=== PATIENT | male | born 1980 | race Caucasian/White ===

== ENCOUNTER 2017-05-14 05:04 | Emergency (ER) | payer MEDICAID ==
[~2017-05-14] VITALS: Ht 175.3 cm; Wt 91.0 kg
[2017-05-14 07:26] LABS: BASOPHILS % 0.4 % (0.0-2.0); EOSINOPHILS % 2.3 % (0.0-5.0); HEMATOCRIT. 32.3 % (42.0-52.0); LYMPHOCYTES % 19.1 % (20.0-50.0); MEAN CORPUSCULAR HEMOGLOBIN 28.1 pg (28.0-32.0); MEAN PLATELET VOLUME 8.8 fl (7.4-10.4); NEUTROPHILS % 70.2 % (40.0-76.0); PLATELET 276 x1000/uL (130-400); RED CELL DISTRIBUTION WIDTH 12.8 % (11.6-14.6)
[2017-05-14 07:34] LABS: PROTHROMBIN TIME 9.9 sec (9.4-11.6)
[2017-05-14 07:53] LABS: CARBON DIOXIDE 30 mEq/L (21-32); CHLORIDE 106 mEq/L (98-107); TROPONIN I < 0.02 ng/mL (0.00-0.04)
[2017-05-14] MEDS ORDERED: FUROSEMIDE 40MG/4ML VIAL IVP ONE (09:30)
[2017-05-14] MEDS ORDERED: NITROGLYCERIN 0.4MG TABLET SL SL PRN ×2 (10:00→14:15)
[2017-05-14] MEDS ORDERED: ONDANSETRON HCL 4MG/2ML VIAL IV PRN ×2 (10:00→14:15)
[2017-05-14] MEDS ORDERED: ACETAMINOPHEN 325MG TABLET PO PRN ×2 (10:00→14:15)
[2017-05-14] MEDS ORDERED: ZOLPIDEM TARTRATE 5MG TABLET PO PRN ×2 (10:00→14:15)
[2017-05-14] MEDS ORDERED: DOCUSATE SODIUM 100MG CAPSULE PO PRN ×2 (10:00→14:15)
[2017-05-14] MEDS ORDERED: DEXTROSE 50% WATER 50ML SYRINGE IV PRN ×2 (10:00→14:15)
[2017-05-14] MEDS ORDERED: DIPHENHYDRAMINE 50MG/ML VIAL IV PRN ×2 (10:00→14:15)
[2017-05-14] MEDS ORDERED: IPRATROPIUM/ALBUTEROL 0.5-3(2.5)MG/3ML NEB INH PRN ×2 (10:00→14:15)
[2017-05-14] MEDS ORDERED: NA PHOS,M-B/NA PHOS,DI-BA ENEMA 118ML PR PRN ×2 (10:00→14:15)
[2017-05-14] MEDS ORDERED: ENOXAPARIN 40MG/0.4ML SYR SUBCUT SCH ×2 (10:00→14:15)
[2017-05-14] MEDS ORDERED: KETOROLAC 15MG/ML VIAL IV PRN ×2 (10:00→14:15)
[2017-05-14] MEDS ORDERED: GUAIFENESIN 200MG/10ML SUGAR FREE UDC PO PRN ×2 (10:00→14:15)
[2017-05-14 10:54] LABS: ETHANOL BLOOD < 10 mg/dL; HDL CHOLESTEROL 88 mg/dL (40-59); LDL CHOLESTEROL 94 mg/dL (5-100)
[2017-05-14] MEDS ORDERED: BLOOD SUGAR DIAGNOSTIC STRIP TEST SCH ×2 (13:00→14:15)
[2017-05-14] MEDS ORDERED: INSULIN LISPRO 100 UNITS/ML SUBCUT SCH ×2 (13:20→14:15)
[2017-05-14 13:36] VITALS: BP 173/109
[2017-05-14] MEDS ORDERED: SPIRONOLACTONE 25MG TABLET PO SCH ×2 (21:00→21:15)
[2017-05-14] MEDS ORDERED: FAMOTIDINE 20MG/2ML VIAL IV SCH ×2 (21:00→21:15)
[2017-05-14] MEDS ORDERED: FUROSEMIDE 40MG/4ML VIAL IVP SCH ×2 (21:00→21:15)
[2017-05-15] MEDS ORDERED: ASPIRIN 325MG EC TABLET PO SCH ×2 (09:00→09:15)
== END 2017-05-14 14:10 | disposition left against medical advice (07) ==
LOC: ER 05:30 → EDBEDREQ 09:41 → ER 14:10 → CANBEDREQ 18:22
DX: E87.70 Fluid overload, unspecified (principal); E11.65 Type 2 diabetes mellitus with hyperglycemia; N28.9 Disorder of kidney and ureter, unspecified; D64.9 Anemia, unspecified; R05 Cough; D72.829 Elevated white blood cell count, unspecified; Z79.82 Long term (current) use of aspirin
CPT/HCPCS: 36415; 71045; 80053; 80061; 83036; 83690; 83880; 84484; 85025; 85610; 93005; 93970; 96374; 99285; G0482; J1940; 80305

== ENCOUNTER 2019-02-11 12:56 | Emergency (ER) | payer MEDICAID ==
[~2019-02-11] VITALS: Ht 175.3 cm; Wt 70.0 kg
[2019-02-11 14:04] LABS: BASOPHILS % 0.2 % (0.0-2.0); EOSINOPHILS % 0.8 % (0.0-5.0); HEMATOCRIT. 38.2 % (42.0-52.0); HEMOGLOBIN. 13.1 g/dL (14.0-18.0); LYMPHOCYTES % 9.6 % (20.0-50.0); MEAN CORPUSCULAR HEMOGLOBIN 31.4 pg (28.0-32.0); MEAN CORPUSCULAR VOLUME 91.6 fL (80.0-94.0); MEAN PLATELET VOLUME 9.7 fl (7.4-10.4); MONOCYTES % 6.4 % (2.0-8.0); PLATELET 173 x1000/uL (130-400); RED BLOOD CELL COUNT 4.18 mill/uL (4.7-6.1); RED CELL DISTRIBUTION WIDTH 15.6 % (11.6-14.6)
[2019-02-11 14:09] LABS: CHLORIDE 87 mEq/L (98-107)
[2019-02-11 14:11] LABS: PARTIAL THROMBOPLASTIN TIME 24.6 sec (23.4-31.0); PROTHROMBIN TIME 10.6 sec (9.6-11.0)
[2019-02-11] MEDS ORDERED: HYDRALAZINE HCL 25MG TABLET PO ONE (15:00)
[2019-02-11] MEDS ORDERED: DOCUSATE SODIUM 100MG CAPSULE PO SCH (17:00)
[2019-02-11] MEDS ORDERED: ASPIRIN 81MG TABLET PO NR (17:00)
[2019-02-11] MEDS ORDERED: SORBITOL 70% SOLN 30ML PO PRN (17:00)
[2019-02-11] MEDS ORDERED: HYDRALAZINE 20MG/ML VIAL IV ONE (17:00)
[2019-02-11] MEDS ORDERED: METOCLOPRAMIDE HCL 5MG TABLET PO NR (17:45)
[2019-02-11] MEDS ORDERED: CALCIUM ACETATE 667MG CAPSULE PO SCH (17:45)
[2019-02-11] MEDS ORDERED: HYDRALAZINE HCL 100MG TABLET PO SCH (17:45)
[2019-02-11] MEDS ORDERED: NIFEDIPINE XL 60MG TAB PO SCH (17:45)
[2019-02-11] MEDS ORDERED: ONDANSETRON HCL 4MG/2ML INJ IV ONE ×2 (20:15→21:45)
[2019-02-12 01:30] VITALS: BP 184/113
[2019-02-12] MEDS ORDERED: CALCIUM ACETATE 667MG CAPSULE PO SCH (09:00)
[2019-02-12] MEDS ORDERED: HYDRALAZINE HCL 100MG TABLET PO SCH (09:00)
[2019-02-12] MEDS ORDERED: NIFEDIPINE XL 60MG TAB PO SCH (09:00)
[2019-02-12] MEDS ORDERED: METOCLOPRAMIDE HCL 5MG TABLET PO SCH (09:00)
[2019-02-12] MEDS ORDERED: EZETIMIBE 10MG TABLET PO SCH (09:00)
== END 2019-02-12 01:37 | disposition short-term general hospital (02) ==
LOC: ER 13:10
DX: I12.0 Hypertensive chronic kidney disease with stage 5 chronic kidney disease or end stage renal disease (principal); E11.22 Type 2 diabetes mellitus with diabetic chronic kidney disease; N18.6 End stage renal disease; R07.89 Other chest pain; E87.79 Other fluid overload; R06.09 Other forms of dyspnea; Z99.2 Dependence on renal dialysis; Z98.890 Other specified postprocedural states; Z88.8 Allergy status to other drugs, medicaments and biological substances
CPT/HCPCS: 36415; 71045; 80053; 82962; 83880; 84484; 85025; 85610; 85730; 93005; 96374; 96375; 96376; 99285; J0360; J2405; J8597; Z7610